=== PATIENT | male | born 2000 | race Asian ===

== ENCOUNTER 2021-02-13 11:11 | Emergency (ER) | payer OTHER ==
[~2021-02-13] VITALS: Ht 170.2 cm; Wt 77.9 kg
[2021-02-13 12:47] LABS: HEMATOCRIT 43.9 % (42.0-52.0); HEMOGLOBIN 14.3 g/dl (13.5-17.5); MEAN CORPUSCULAR HEMOGLOBIN 25.4 pg (27.0-33.0); MEAN CORPUSCULAR HGB CONC 32.6 g/dl (32.0-36.5); PLATELET COUNT, AUTOMATED 295 10^3/uL (150-450); RED BLOOD COUNT 5.63 10^6/uL (4.30-6.10); WHITE BLOOD COUNT 7.3 10^3/uL (4.0-10.0)
--- NOTE | 2021-02-13 12:59 | REPVR ---
PROCEDURE INFORMATION: Exam: CT Head Without Contrast Exam date and time: 02/13/2021 12:44 PM Age: 20 years old Clinical indication: Injury or trauma; Fall; Blunt trauma (contusions or hematomas); Syncope and collapse; Additional info: Syncope, unwitnessed fall TECHNIQUE: Imaging protocol: Computed tomography of the head without contrast. Radiation optimization: All CT scans at this facility use at least one of these dose optimization techniques: automated exposure control; mA and/or kV adjustment per patient size (includes targeted exams where dose is matched to clinical indication); or iterative reconstruction. COMPARISON: No relevant prior studies available. FINDINGS: Brain: There is no acute intracranial hemorrhage. No extra-axial fluid collection. No evidence of acute infarct. [place] white differentiation is intact. There is no evidence of mass. There is no mass effect or midline shift. Cerebral ventricles: No ventriculomegaly. Paranasal sinuses: Visualized sinuses are unremarkable. No fluid levels. Mastoid air cells: No significant mastoid effusion. Bones/joints: No acute fracture. Soft tissues: Unremarkable as visualized. IMPRESSION: No evidence of acute intracranial abnormality. No acute hemorrhage. No evidence of acute infarct or mass. Electronically signed by: Jazmine Naidu On 02/13/2021 12:59:16 PM
[2021-02-13 13:13] LABS: BLOOD UREA NITROGEN 16 MG/DL (7-18); CALCIUM LEVEL 8.7 MG/DL (8.5-10.1); CARBON DIOXIDE LEVEL 28 MEQ/L (21-32); CHLORIDE LEVEL 105 MEQ/L (98-107); CPK CREATINE PHOSPHOKINASE 228 U/L (39-308); CREATININE FOR GFR 1.07 MG/DL (0.70-1.30); GLUCOSE, FASTING 95 MG/DL (70-100); SODIUM LEVEL 137 MEQ/L (136-145)
[2021-02-13 14:03] VITALS: BP 130/82
--- NOTE | 2021-02-14 10:10 | ECGEPIP ---
[facility] - ED Test Date: 2021-02-13 Pat Name: BLANCA VITALE Department: Room: - Gender: Male [employer]: miguel : [id number] Requested By: Gladys Hill Order Number: [id number] Reading MD: Gladys Hill Measurements Intervals [place] Rate: 62 P: 18 DE: 160 QRS: 73 QRSD: 88 T: 33 QT: 400 QTc: 406 Interpretive Statements Normal sinus rhythm with sinus arrhythmia No prior Electronically Signed on 02-14-2021 10:09:55 EDT by Gladys Hill
== END 2021-02-13 14:05 | disposition home or self-care (01) ==
LOC: M ED 11:11
DX: R55 Syncope and collapse (principal)

== ENCOUNTER 2021-03-30 14:53 | Emergency (ER) | payer OTHER ==
[~2021-03-30] VITALS: Ht 170.2 cm; Wt 77.8 kg
[2021-03-30 17:38] LABS: BASO % 0.4 % (0.0-1.0); EOS # 0.2 10^3/uL (0.0-0.5); EOS % 2.1 % (0.0-3.0); HEMATOCRIT 48.2 % (42.0-52.0); LYMPH # 2.1 10^3/uL (1.5-5.0); LYMPH % 29.6 % (24.0-44.0); MEAN CORPUSCULAR HEMOGLOBIN 25.8 pg (27.0-33.0); MEAN CORPUSCULAR HGB CONC 33.2 g/dl (32.0-36.5); MEAN CORPUSCULAR VOLUME 77.9 fl (80.0-96.0); MONO # 0.6 10^3/uL (0.0-0.8); MONO % 8.3 % (2.0-8.0); NEUTROPHILS # 4.3 10^3/uL (1.5-8.5); NEUTROPHILS % 58.9 % (36.0-66.0); PLATELET COUNT, AUTOMATED 309 10^3/uL (150-450); RED BLOOD COUNT 6.19 10^6/uL (4.30-6.10); WHITE BLOOD COUNT 7.2 10^3/uL (4.0-10.0)
[2021-03-30 17:43] LABS: ALBUMIN 4.1 GM/DL (3.2-5.2); ALT/SGPT 23 U/L (12-78); BILIRUBIN,DIRECT 0.2 MG/DL (0.0-0.2); BILIRUBIN,TOTAL 0.5 MG/DL (0.2-1.0); BLOOD UREA NITROGEN 15 MG/DL (7-18); CALCIUM LEVEL 9.2 MG/DL (8.5-10.1); CARBON DIOXIDE LEVEL 26 MEQ/L (21-32); CHLORIDE LEVEL 105 MEQ/L (98-107); CREATININE FOR GFR 1.08 MG/DL (0.70-1.30); GLUCOSE, FASTING 91 MG/DL (70-100); POTASSIUM SERUM 4.3 MEQ/L (3.5-5.1); SODIUM LEVEL 139 MEQ/L (136-145); TOTAL PROTEIN 7.9 GM/DL (6.4-8.2)
[2021-03-30 17:49] LABS: INR 0.92; PROTHROMBIN TIME 12.7 SECONDS (12.7-14.5)
[2021-03-30 17:50] LABS: PARTIAL THROMBOPLASTIN TIME 28.5 SECONDS (25.9-37.0)
[2021-03-30 18:16] VITALS: BP 127/61
== END 2021-03-30 18:21 | disposition home or self-care (01) ==
LOC: M ED 14:53
DX: R04.0 Epistaxis (principal); K62.5 Hemorrhage of anus and rectum